=== PATIENT | female | born 1970 | race Hispanic/Latino ===

== ENCOUNTER 2018-08-15 12:25 | Outpatient (CLI) | payer OTHER | END 2018-08-15 12:26 | disposition home or self-care (01) | LOC: RAD 12:25 ==

== ENCOUNTER 2018-08-29 08:31 | Outpatient (CLI) | payer OTHER | END 2018-08-29 08:32 | disposition home or self-care (01) | LOC: LAB 08:31 ==

== ENCOUNTER 2018-10-05 09:49 | Outpatient (CLI) | payer OTHER | END 2018-10-05 09:50 | disposition home or self-care (01) | LOC: LAB 09:49 ==